=== PATIENT | male | born 1995 | race Two or more races ===

== ENCOUNTER 2018-12-04 20:52 | Inpatient (IN) | payer OTHER ==
[~2018-12-04] VITALS: Ht 177.8 cm; Wt 85.6 kg
[2018-12-04] MEDS ORDERED: CLIN150C10 PO (21:14)
[2018-12-04] MEDS ORDERED: VANCOMYCIN HCL 1 GM/D5% WATER 200 ML IV ONE (22:30)
[2018-12-04] MEDS ORDERED: KETOROLAC TROMETHAMINE 30 MG/ML VIAL IVP ONE (22:30)
[2018-12-04 22:37] LABS: BASOPHILS % (AUTO) 0.4 % (0.0-2.0); EOSINOPHILS % (AUTO) 1.8 % (1.0-6.0); HEMOGLOBIN 15.8 g/dL (13.5-17.5); LYMPHOCYTES # (AUTO) 2.3 K/uL (1.0-4.8); LYMPHOCYTES % (AUTO) 13.3 % (22.0-44.0); MEAN CORPUSCULAR HEMOGLOBIN 30.4 pg (26.0-34.0); MEAN CORPUSCULAR HGB CONC 34.3 G/dL (31.0-37.0); MEAN CORPUSCULAR VOLUME 89 fL (80-100); MONOCYTES # (AUTO) 1.5 K/uL (0.1-1.0); MONOCYTES % (AUTO) 8.8 % (2.0-9.0); NEUTROPHILS # (AUTO) 13.2 K/uL (1.8-7.7); NEUTROPHILS % (AUTO) 75.7 % (40.0-70.0); PLATELET COUNT (AUTO) 343 K/uL (150-450); RED CELL DISTRIBUTION WIDTH 13.6 % (11.5-14.5)
[2018-12-04 22:47] LABS: ANION GAP 7 mmol/L (8-16); CARBON DIOXIDE 31 mmol/L (22-29); CHLORIDE 105 mmol/L (98-107); CREATININE 0.92 mg/dL (0.60-1.30); GLOMERULAR FILTR. RATE CALC > 60 mL/min (>60); GLUCOSE,RANDOM 82 mg/dL (70-110); POTASSIUM 4.3 mmol/L (3.5-5.1); SODIUM SERUM 143 mmol/L (136-145); UREA NITROGEN, BLOOD 12 mg/dL (7-18)
[2018-12-04 22:55] LABS: LACTIC ACID 1.4 mmol/L (0.4-2.0)
[2018-12-04 23:02] LABS: ALANINE AMINOTRANSFERASE 26 U/L (12-78); ALBUMIN 3.7 g/dL (3.4-5.0); ALKALINE PHOSPHATASE 96 U/L (46-116); ASPARTATE AMINOTRANSFERASE 17 U/L (15-37); BILIRUBIN,TOTAL 0.2 mg/dL (0.1-1.0); TOTAL PROTEIN, SERUM 7.8 g/dL (6.4-8.2)
[2018-12-04] MEDS ORDERED: IOVERSOL 350 MG/ML 100 ML VIAL ONE (23:16)
[2018-12-04] MEDS ORDERED: SODIUM CHLORIDE 0.9% 100 ML ONE (23:17)
[2018-12-05] VITALS (7 sets, daily range): BP systolic 126–144; BP diastolic 67–87
[2018-12-05] MEDS ORDERED: HYDROCODONE/ACETAMINOPHEN 5-325 MG TABLET PO ONE (01:45)
[2018-12-05 02:26] LABS: CREATINE KINASE, TOTAL ONLY 61 U/L (39-308)
[2018-12-05] MEDS ORDERED: ACETAMINOPHEN 325 MG TABLET PO PRN (05:45)
[2018-12-05] MEDS ORDERED: ZOLPIDEM TARTRATE 5 MG TABLET PO PRN (05:45)
[2018-12-05] MEDS ORDERED: 0.9% SODIUM CHLORIDE 10 ML SYRINGE IVP PRN (05:45)
[2018-12-05] MEDS ORDERED: ONDANSETRON HCL 4 MG/2 ML VIAL IVP PRN (05:45)
[2018-12-05] MEDS ORDERED: SODIUM CHLORIDE 0.9% 500 ML IV ONE (05:50)
[2018-12-05] MEDS: MORPHINE SULFATE 2 MG/ML SYRINGE IVP PRN ×4 (05:59→19:39)
[2018-12-05] MEDS: PIPERACILLIN/TAZO 3.375 GM/D5W 50 ML IV SCH ×3 (06:00→19:39)
[2018-12-05] MEDS: HEPARIN SODIUM,PORCINE 5,000 UNITS/ML VIAL SQ SCH ×2 (08:00→16:00)
[2018-12-05] MEDS: VANCOMYCIN HCL 1.5 GM in DEXTROSE 5%-WATER 250 ML IV SCH ×3 (08:07→22:44)
[2018-12-05] MEDS ORDERED: PANTOPRAZOLE SODIUM 40 MG DR TABLET PO SCH (09:00)
[2018-12-05] MEDS ORDERED: SODIUM CHLORIDE 0.9% 1,000 ML IV SCH (09:45)
[2018-12-05 10:04] LABS: BASOPHILS % (AUTO) 0.4 % (0.0-2.0); EOSINOPHILS % (AUTO) 1.3 % (1.0-6.0); HEMATOCRIT 42.5 % (41-53); HEMOGLOBIN 14.3 g/dL (13.5-17.5); LYMPHOCYTES # (AUTO) 1.7 K/uL (1.0-4.8); MEAN CORPUSCULAR HEMOGLOBIN 29.3 pg (26.0-34.0); MEAN CORPUSCULAR HGB CONC 33.5 G/dL (31.0-37.0); MEAN CORPUSCULAR VOLUME 87 fL (80-100); MONOCYTES # (AUTO) 1.7 K/uL (0.1-1.0); MONOCYTES % (AUTO) 9.2 % (2.0-9.0); NEUTROPHILS % (AUTO) 80.1 % (40.0-70.0); PLATELET COUNT (AUTO) 305 K/uL (150-450); RED BLOOD CELL COUNT(AUTO) 4.88 MIL/uL (4.50-5.90); RED CELL DISTRIBUTION WIDTH 13.3 % (11.5-14.5)
[2018-12-05] MEDS ORDERED: PROPOFOL 1% 20 ML VIAL IVP ONE (12:00)
[2018-12-05] MEDS ORDERED: FentaNYL CITRATE-PF 100 MCG/2 ML VIAL IVP ONE (12:00)
[2018-12-05] MEDS ORDERED: MIDAZOLAM HCL 2 MG/2 ML VIAL IVP ONE (12:00)
[2018-12-05] MEDS ORDERED: LIDOCAINE/PF 2% 5 ML VIAL INJ ONE (12:00)
[2018-12-05] MEDS ORDERED: ONDANSETRON HCL 4 MG/2 ML VIAL IVP ONE (12:00)
[2018-12-05] MEDS ORDERED: RINGERS SOLUTION,LACTATED 1,000 ML IV ONE (20:17)
[2018-12-05] MEDS ORDERED: SODIUM CHLORIDE 0.9% 10 ML ONE (21:16)
[2018-12-05] MEDS ORDERED: BACITRACIN 50,000 UNITS/VIAL ONE (21:16)
[2018-12-05] MEDS: HYDROmorphone 2 MG/ML SYRINGE IVP PRN (22:49)
[2018-12-06 00:32] VITALS: BP 136/69
[2018-12-06] MEDS: PIPERACILLIN/TAZO 3.375 GM/D5W 50 ML IV SCH ×2 (00:59→06:10)
[2018-12-06] MEDS ORDERED: SODIUM CHLORIDE 0.9% 500 ML IV ONE ×2 (02:34→23:21)
[2018-12-06] MEDS: HYDROCODONE/ACETAMINOPHEN 5-325 MG TABLET PO PRN (02:48)
[2018-12-06 05:04] VITALS: BP 114/65
[2018-12-06 05:18] LABS: BASOPHILS % (AUTO) 0.3 % (0.0-2.0); EOSINOPHILS % (AUTO) 2.2 % (1.0-6.0); HEMATOCRIT 41.9 % (41-53); HEMOGLOBIN 14.1 g/dL (13.5-17.5); LYMPHOCYTES # (AUTO) 2.7 K/uL (1.0-4.8); LYMPHOCYTES % (AUTO) 17.1 % (22.0-44.0); MEAN CORPUSCULAR HEMOGLOBIN 29.9 pg (26.0-34.0); MEAN CORPUSCULAR HGB CONC 33.7 G/dL (31.0-37.0); MEAN CORPUSCULAR VOLUME 89 fL (80-100); MONOCYTES # (AUTO) 1.6 K/uL (0.1-1.0); MONOCYTES % (AUTO) 10.6 % (2.0-9.0); NEUTROPHILS # (AUTO) 10.8 K/uL (1.8-7.7); NEUTROPHILS % (AUTO) 69.8 % (40.0-70.0); PLATELET COUNT (AUTO) 291 K/uL (150-450); RED BLOOD CELL COUNT(AUTO) 4.74 MIL/uL (4.50-5.90); RED CELL DISTRIBUTION WIDTH 13.4 % (11.5-14.5)
[2018-12-06 05:36] LABS: ANION GAP 6 mmol/L (8-16); CALCIUM, TOTAL 8.1 mg/dL (8.8-10.5); CARBON DIOXIDE 30 mmol/L (22-29); CHLORIDE 103 mmol/L (98-107); CREATININE 0.93 mg/dL (0.60-1.30); GLOMERULAR FILTR. RATE CALC > 60 mL/min (>60); GLUCOSE,RANDOM 103 mg/dL (70-110); POTASSIUM 3.9 mmol/L (3.5-5.1); SODIUM SERUM 139 mmol/L (136-145); UREA NITROGEN, BLOOD 9 mg/dL (7-18); VANCOMYCIN,RANDOM 20.8 mcg/mL (25.0-50.0)
[2018-12-06] MEDS: VANCOMYCIN HCL 1.5 GM in DEXTROSE 5%-WATER 250 ML IV SCH ×3 (06:52→23:18)
[2018-12-06 07:57] VITALS: BP 101/58
[2018-12-06] MEDS: FAMOTIDINE 20 MG TABLET PO SCH ×2 (08:16→20:00)
[2018-12-06] MEDS: IBUPROFEN 200 MG TABLET PO SCH ×3 (10:00→17:33)
[2018-12-06 12:30] VITALS: BP 130/63
[2018-12-06] MEDS ORDERED: CLIN300C3 PO (13:28)
[2018-12-06 16:12] VITALS: BP 114/61
[2018-12-06 19:40] VITALS: BP 123/63
[2018-12-07 04:00] VITALS: BP 108/69
[2018-12-07 05:03] LABS: BASOPHILS % (AUTO) 0.9 % (0.0-2.0); EOSINOPHILS % (AUTO) 6.2 % (1.0-6.0); HEMATOCRIT 43.1 % (41-53); HEMOGLOBIN 14.6 g/dL (13.5-17.5); LYMPHOCYTES # (AUTO) 2.5 K/uL (1.0-4.8); LYMPHOCYTES % (AUTO) 26.3 % (22.0-44.0); MEAN CORPUSCULAR HEMOGLOBIN 29.9 pg (26.0-34.0); MEAN CORPUSCULAR HGB CONC 33.9 G/dL (31.0-37.0); MEAN CORPUSCULAR VOLUME 88 fL (80-100); MONOCYTES # (AUTO) 1.1 K/uL (0.1-1.0); MONOCYTES % (AUTO) 11.3 % (2.0-9.0); NEUTROPHILS # (AUTO) 5.2 K/uL (1.8-7.7); NEUTROPHILS % (AUTO) 55.3 % (40.0-70.0); PLATELET COUNT (AUTO) 323 K/uL (150-450); RED BLOOD CELL COUNT(AUTO) 4.88 MIL/uL (4.50-5.90); RED CELL DISTRIBUTION WIDTH 13.4 % (11.5-14.5)
[2018-12-07 05:15] LABS: ANION GAP 6 mmol/L (8-16); CALCIUM, TOTAL 8.5 mg/dL (8.8-10.5); CARBON DIOXIDE 29 mmol/L (22-29); CHLORIDE 106 mmol/L (98-107); CREATININE 0.82 mg/dL (0.60-1.30); GLOMERULAR FILTR. RATE CALC > 60 mL/min (>60); GLUCOSE,RANDOM 93 mg/dL (70-110); POTASSIUM 4.7 mmol/L (3.5-5.1); SODIUM SERUM 141 mmol/L (136-145); UREA NITROGEN, BLOOD 11 mg/dL (7-18)
[2018-12-07] MEDS: VANCOMYCIN HCL 1.5 GM in DEXTROSE 5%-WATER 250 ML IV SCH ×3 (06:42→22:30)
[2018-12-07 07:31] VITALS: BP 105/56
[2018-12-07] MEDS: FAMOTIDINE 20 MG TABLET PO SCH ×2 (08:09→20:31)
[2018-12-07] MEDS: IBUPROFEN 200 MG TABLET PO SCH ×3 (08:09→16:54)
[2018-12-07] MEDS: HYDROCODONE/ACETAMINOPHEN 5-325 MG TABLET PO PRN ×2 (10:38→20:34)
[2018-12-07 11:35] VITALS: BP 123/58
[2018-12-07] MEDS: MORPHINE SULFATE 4 MG/ML SYRINGE IVP PRN (13:13)
[2018-12-07 15:30] VITALS: BP 112/64
[2018-12-07 19:30] VITALS: BP 114/55
[2018-12-07] MEDS: MUPIROCIN CALCIUM 2% 22 GM OINTMENT TP SCH (22:30)
[2018-12-07 23:00] VITALS: BP 121/66
[2018-12-07] MEDS: HYDROmorphone 2 MG/ML SYRINGE IVP PRN (23:21)
[2018-12-08 04:34] VITALS: BP 103/69
[2018-12-08] MEDS: VANCOMYCIN HCL 1.5 GM in DEXTROSE 5%-WATER 250 ML IV SCH ×3 (06:26→23:26)
[2018-12-08 07:30] VITALS: BP 110/62
[2018-12-08] MEDS: IBUPROFEN 200 MG TABLET PO SCH ×3 (08:40→17:16)
[2018-12-08] MEDS: FAMOTIDINE 20 MG TABLET PO SCH ×2 (08:40→20:28)
[2018-12-08] MEDS: MUPIROCIN CALCIUM 2% 22 GM OINTMENT TP SCH ×2 (08:40→20:29)
[2018-12-08 09:23] LABS: ANION GAP 5 mmol/L (8-16); CARBON DIOXIDE 30 mmol/L (22-29); CHLORIDE 103 mmol/L (98-107); CREATININE 0.83 mg/dL (0.60-1.30); GLOMERULAR FILTR. RATE CALC > 60 mL/min (>60); GLUCOSE,RANDOM 109 mg/dL (70-110); POTASSIUM 4.7 mmol/L (3.5-5.1); SODIUM SERUM 138 mmol/L (136-145); UREA NITROGEN, BLOOD 16 mg/dL (7-18)
[2018-12-08 11:29] VITALS: BP 117/53
[2018-12-08 15:30] VITALS: BP 120/55
[2018-12-08 20:05] VITALS: BP 130/55
[2018-12-08 23:30] VITALS: BP 130/68
[2018-12-08] MEDS: HYDROCODONE/ACETAMINOPHEN 5-325 MG TABLET PO PRN (23:32)
[2018-12-09] MEDS: MORPHINE SULFATE 4 MG/ML SYRINGE IVP PRN (01:40)
[2018-12-09 05:20] VITALS: BP 113/66
[2018-12-09] MEDS: VANCOMYCIN HCL 1.5 GM in DEXTROSE 5%-WATER 250 ML IV SCH ×3 (06:48→23:30)
[2018-12-09 08:05] VITALS: BP 111/80
[2018-12-09] MEDS: FAMOTIDINE 20 MG TABLET PO SCH ×2 (09:50→20:41)
[2018-12-09] MEDS: MUPIROCIN CALCIUM 2% 22 GM OINTMENT TP SCH ×2 (09:50→20:41)
[2018-12-09] MEDS: IBUPROFEN 200 MG TABLET PO SCH ×3 (09:50→16:33)
[2018-12-09 12:09] VITALS: BP 117/63
[2018-12-09 15:43] LABS: ANION GAP 6 mmol/L (8-16); CALCIUM, TOTAL 8.7 mg/dL (8.8-10.5); CARBON DIOXIDE 28 mmol/L (22-29); CHLORIDE 103 mmol/L (98-107); CREATININE 0.92 mg/dL (0.60-1.30); GLOMERULAR FILTR. RATE CALC > 60 mL/min (>60); GLUCOSE,RANDOM 108 mg/dL (70-110); POTASSIUM 4.3 mmol/L (3.5-5.1); SODIUM SERUM 137 mmol/L (136-145); UREA NITROGEN, BLOOD 13 mg/dL (7-18); VANCOMYCIN,RANDOM 14.4 mcg/mL (25.0-50.0)
[2018-12-09 16:04] VITALS: BP 108/64
[2018-12-09 20:10] VITALS: BP 115/50
[2018-12-09] MEDS: HYDROCODONE/ACETAMINOPHEN 5-325 MG TABLET PO PRN (20:43)
[2018-12-09 23:46] VITALS: BP 111/68
[2018-12-10] MEDS: HYDROCODONE/ACETAMINOPHEN 5-325 MG TABLET PO PRN ×3 (03:27→23:30)
[2018-12-10 05:29] VITALS: BP 108/55
[2018-12-10] MEDS: VANCOMYCIN HCL 1.5 GM in DEXTROSE 5%-WATER 250 ML IV SCH ×3 (06:49→22:24)
[2018-12-10 07:47] LABS: EOSINOPHILS % (AUTO) 5.4 % (1.0-6.0); HEMATOCRIT 42.6 % (41-53); HEMOGLOBIN 14.3 g/dL (13.5-17.5); LYMPHOCYTES # (AUTO) 2.4 K/uL (1.0-4.8); LYMPHOCYTES % (AUTO) 28.8 % (22.0-44.0); MEAN CORPUSCULAR HEMOGLOBIN 29.6 pg (26.0-34.0); MEAN CORPUSCULAR HGB CONC 33.5 G/dL (31.0-37.0); MEAN CORPUSCULAR VOLUME 88 fL (80-100); MONOCYTES % (AUTO) 12.2 % (2.0-9.0); NEUTROPHILS # (AUTO) 4.4 K/uL (1.8-7.7); NEUTROPHILS % (AUTO) 52.6 % (40.0-70.0); PLATELET COUNT (AUTO) 387 K/uL (150-450); RED BLOOD CELL COUNT(AUTO) 4.82 MIL/uL (4.50-5.90); RED CELL DISTRIBUTION WIDTH 13.3 % (11.5-14.5)
[2018-12-10 08:04] VITALS: BP 95/52
[2018-12-10 08:09] LABS: ANION GAP 8 mmol/L (8-16); CALCIUM, TOTAL 8.7 mg/dL (8.8-10.5); CARBON DIOXIDE 28 mmol/L (22-29); CHLORIDE 104 mmol/L (98-107); GLOMERULAR FILTR. RATE CALC > 60 mL/min (>60); GLUCOSE,RANDOM 80 mg/dL (70-110); POTASSIUM 4.4 mmol/L (3.5-5.1); SODIUM SERUM 140 mmol/L (136-145); UREA NITROGEN, BLOOD 16 mg/dL (7-18)
[2018-12-10] MEDS: MULTIVITAMINS, THERAPEUTIC TABLET PO SCH (08:11)
[2018-12-10] MEDS: FAMOTIDINE 20 MG TABLET PO SCH ×2 (08:11→20:33)
[2018-12-10] MEDS: IBUPROFEN 200 MG TABLET PO SCH ×3 (08:11→17:34)
[2018-12-10] MEDS: MUPIROCIN CALCIUM 2% 22 GM OINTMENT TP SCH ×2 (08:12→20:34)
[2018-12-10 11:58] VITALS: BP 113/53
[2018-12-10] MEDS: HYDROmorphone 2 MG/ML SYRINGE IVP PRN (13:28)
[2018-12-10 15:52] VITALS: BP 114/62
[2018-12-10 19:58] VITALS: BP 114/59
[2018-12-11] VITALS (7 sets, daily range): BP systolic 108–127; BP diastolic 53–76
[2018-12-11] MEDS: HYDROmorphone 2 MG/ML SYRINGE IVP PRN (02:12)
[2018-12-11] MEDS: VANCOMYCIN HCL 1.5 GM in DEXTROSE 5%-WATER 250 ML IV SCH ×2 (06:43→14:50)
[2018-12-11 07:25] LABS: ANION GAP 3 mmol/L (8-16); CALCIUM, TOTAL 8.6 mg/dL (8.8-10.5); CARBON DIOXIDE 30 mmol/L (22-29); CHLORIDE 104 mmol/L (98-107); CREATININE 0.87 mg/dL (0.60-1.30); GLOMERULAR FILTR. RATE CALC > 60 mL/min (>60); GLUCOSE,RANDOM 80 mg/dL (70-110); POTASSIUM 4.6 mmol/L (3.5-5.1); SODIUM SERUM 137 mmol/L (136-145); UREA NITROGEN, BLOOD 14 mg/dL (7-18)
[2018-12-11] MEDS: IBUPROFEN 200 MG TABLET PO SCH ×3 (08:06→18:24)
[2018-12-11] MEDS: FAMOTIDINE 20 MG TABLET PO SCH ×2 (08:07→19:56)
[2018-12-11] MEDS: MUPIROCIN CALCIUM 2% 22 GM OINTMENT TP SCH ×2 (08:07→19:56)
[2018-12-11] MEDS: MULTIVITAMINS, THERAPEUTIC TABLET PO SCH (08:07)
[2018-12-11] MEDS: HYDROCODONE/ACETAMINOPHEN 5-325 MG TABLET PO PRN ×2 (16:14→19:56)
[2018-12-11] MEDS ORDERED: DiphenhydrAMINE HCL 50 MG/ML VIAL IVP PRN ×2 (20:45→23:30)
[2018-12-11] MEDS ORDERED: DAPTOMYCIN 500 MG in SODIUM CHLORIDE 0.9% 50 ML IV SCH (23:00)
[2018-12-12 04:00] VITALS: BP 113/40
[2018-12-12 06:14] LABS: ANION GAP 5 mmol/L (8-16); CALCIUM, TOTAL 8.4 mg/dL (8.8-10.5); CARBON DIOXIDE 28 mmol/L (22-29); CHLORIDE 105 mmol/L (98-107); CREATININE 1.12 mg/dL (0.60-1.30); GLOMERULAR FILTR. RATE CALC > 60 mL/min (>60); GLUCOSE,RANDOM 93 mg/dL (70-110); POTASSIUM 4.5 mmol/L (3.5-5.1); SODIUM SERUM 138 mmol/L (136-145); UREA NITROGEN, BLOOD 22 mg/dL (7-18); VANCOMYCIN,RANDOM 7.1 mcg/mL (25.0-50.0)
[2018-12-12 07:39] VITALS: BP 104/54
[2018-12-12] MEDS: MUPIROCIN CALCIUM 2% 22 GM OINTMENT TP SCH (07:55)
[2018-12-12] MEDS: IBUPROFEN 200 MG TABLET PO SCH ×2 (07:55→12:10)
[2018-12-12] MEDS: MULTIVITAMINS, THERAPEUTIC TABLET PO SCH (07:55)
[2018-12-12] MEDS: FAMOTIDINE 20 MG TABLET PO SCH (07:55)
[2018-12-12 11:33] VITALS: BP 108/66
[2018-12-12] MEDS: HYDROmorphone 2 MG/ML SYRINGE IVP PRN (12:56)
[2018-12-12] MEDS ORDERED: FAMO20 PO (15:34)
[2018-12-12] MEDS ORDERED: IBUP-2271 PO (15:34)
[2018-12-12] MEDS ORDERED: DAPT500V8 IV (15:35)
[2018-12-12] MEDS ORDERED: MULT-1239 PO (15:35)
[2018-12-12] MEDS ORDERED: MUPI15CR12 NASAL (15:38)
[2018-12-12 16:16] VITALS: BP 130/65
[2018-12-12] MEDS ORDERED: INFLUENZA VIRUS VACCINE QVS 2019-20 (3YR+)/PF 60 MCG/0.5 ML SYRINGE IM ONE (16:45)
== END 2018-12-12 17:00 | DRG 383 ==
LOC: EMS 20:52 → 4E 12-05 01:38
PROVIDERS: ADMIT Internal Medicine; ATTEND Internal Medicine
PROC: 0JBH0ZZ Excision of Left Lower Arm Subcutaneous Tissue and Fascia, Open Approach (ICD-10-PCS; principal; 2018-12-05 21:00)
DX: L02.414 Cutaneous abscess of left upper limb (principal); F15.90 Other stimulant use, unspecified, uncomplicated; L03.114 Cellulitis of left upper limb; T63.301A Toxic effect of unspecified spider venom, accidental (unintentional), initial encounter; F17.200 Nicotine dependence, unspecified, uncomplicated
CPT/HCPCS: 73201; 83605; 87040; 87070; 87205; 88304; 93306; G0378; J0878; J1170; J1200; J1644; J1885; J2250; J2270; J2405; J2543; J2704; J3010; J3370; J3490; J7040; J7050; J7060; J7120